=== PATIENT | male | born 1975 | race Caucasian/White ===

== ENCOUNTER 2016-10-23 07:41 | Emergency (ER) | payer BC ==
[2016-10-23 07:59] VITALS: BP 118/77
--- NOTE | 2016-10-23 08:06 | UC ---
Eye Complaint HPI - HPI Summary HPI Summary: complaint of red right eye that started yesterday woke up with crusty green and yellow discharge in his eye lashes extremely itchy his eye feels slightly painful and photophobic denies any foreign body in his eye doesn't wear contacts denies vision changes. pain or "grinding pain" now the redness has spread to the other eye has had some nasal congestion for approx 4 days hasn't used any medications or treatments - History of Current Complaint Chief Complaint: UCEye Stated Complaint: EYE COMPLAINT Time Seen by Provider: 10/23/16 07:44 Hx Obtained From: Patient Location of Injury: Conjunctiva Character: Dull Aggravating Factor(s): Light Alleviating Factor(s): Nothing Associated Signs And Symptoms: Positive: Drainage (Purulent) - Risk Factors Penetrating Injury Risk Factor: Negative Globe Rupture Risk Factors: Negative Acute Glaucoma Risk Factors: Negative Optic Artery Occlusion Risk Factors: Negative - Allergies/Home Medications Allergies/Adverse Reactions: Allergies Allergy/AdvReac Type Severity Reaction Status Date / Time No Known Allergies Allergy Verified 10/23/16 07:52 PMH/Surg Hx/FS Hx/Imm Hx Previously Healthy: Yes Cardiovascular History Of: Reports: Hypertension Denies: Deep Vein Thrombosis Respiratory History Of: Denies: Pulmonary Embolism - Surgical History Surgical History: None - Family History Known Family History: Positive: Other - cancer, both parents alive and well Negative: Cardiac Disease, Hypertension, Diabetes - Social History Occupation: Employed Full-time Lives: With Family Alcohol Use: Occasionally Substance Use Type: None Smoking Status (MU): Former Smoker When Did the Patient Quit Smoking/Using Tobacco: 2005 Review of Systems Constitutional: Negative Skin: Negative Eyes: Drainage, Eye Redness ENT: Negative Respiratory: Negative Cardiovascular: Negative Gastrointestinal: Negative Genitourinary: Negative Motor: Negative Neurovascular: Negative Musculoskeletal: Negative Neurological: Negative Psychological: Negative All Other Systems Reviewed And Are Negative: Yes Physical Exam Triage Information Reviewed: Yes Appearance: No Pain Distress, Well-Nourished Vital Signs: Initial Vital Signs Temp 98.4 F 10/23/16 07:48 Pulse 66 10/23/16 07:48 Resp 16 10/23/16 07:48 BP 118/77 10/23/16 07:48 Pulse Ox 100 10/23/16 07:48 Vital Signs Reviewed: Yes Eyes: Positive: Conjunctiva Inflamed, Discharge ENT: Positive: Pharynx normal, Nasal congestion, Nasal drainage, TMs normal Neck: Positive: No Lymphadenopathy Respiratory: Positive: Lungs clear, Normal breath sounds, No respiratory distress Cardiovascular: Positive: RRR, No Murmur, Pulses Normal Musculoskeletal: Positive: No Edema Neurological: Positive: Alert Psychological Exam: Normal Skin Exam: Normal Eye Complaint Course/Dx - Differential Dx/Diagnosis Differential Diagnosis/HQI/PQRI: Conjunctivitis, Corneal Abrasion Provider Diagnoses: conjunctivitis-bilateral Discharge - Discharge Plan Condition: Stable Disposition: HOME Prescriptions: Tobramycin (Ophth) [Tobrex] 0.3 % OP Q4HR #1 bottle Patient Education Materials: Conjunctivitis (ED) Referrals: Jian Russ DO [Primary Care Provider] - Additional Instructions: CONJUNCTIVITIS What is Conjunctivitis? Conjunctivitis is redness and swelling of the conjunctiva, the thin transparent layer that lines the inner eyelid and covers the white part of the eye. The three main types of conjunctivitis are infectious, allergic, and chemical. The infectious type, commonly called "pink eye," is caused by a contagious virus or by bacteria. Your body's allergies to pollen, cosmetics, animals or fabrics often bring on allergic conjunctivitis. Irritants like air pollution, noxious fumes and chlorine in swimming pools may produce the chemical form. Symptoms Might Include: More tearing Eye pain Redness in the eyes Gritty feeling in the eyes Itching of the eye Blurred vision Sensitivity to light Crusts that form on the eyelid overnight Treatment Recommendations: Use eye drops or ointment as directed. Do not rub or touch your eyes. Wash your hands frequently. Use cool compresses to relieve pain and itching. Prevention: Do not share eye make-up. Replace eye make-up frequently. Do not share towels, washcloths, etc. Do not share eye drops. Disinfect and handle contact lenses properly. Call Your Doctor or Return Here IF: Your symptoms worsen or do not improve in 3 to 4 days. You have problems with, or loss of, your vision. You have a significant increase in pain. You have any new symptoms that worry you.
== END 2016-10-23 08:24 | disposition home or self-care (01) ==
LOC: UCCORT 07:41
DX: H10.33 Unspecified acute conjunctivitis, bilateral (principal); Z87.891 Personal history of nicotine dependence
CPT/HCPCS: 99212; G0463

== ENCOUNTER 2018-06-06 12:10 | Emergency (ER) | payer BC ==
[2018-06-06 13:28] VITALS: BP 136/83
--- NOTE | 2018-06-06 14:45 | UC ---
UC General HPI - HPI Summary HPI Summary: Pt c/o sudden onset of wekness, fatigfue, abdominal pain, nausea, and lose stool X 4 days. Pt has not vomited and has had one loose BM , today. Pt states the feeling of weakness and dizziness is transient and has no other symptoms or palpitations, chest pain, [place], sob. - History of Current Complaint Chief Complaint: UCGeneralIllness Stated Complaint: FATIGUE/WEAKNESS SWEATS/CHILLS STOMACH Time Seen by Provider: 06/06/18 13:45 Hx Obtained From: Patient Onset/Duration: Sudden Onset, Lasting Minutes Timing: Intermittent Episodes Lasting: Onset Severity: Mild Current Severity: Mild Pain Intensity: 0 Associated Signs & Symptoms: Positive: Dizziness, Nausea, Weakness - Allergy/Home Medications Allergies/Adverse Reactions: Allergies Allergy/AdvReac Type Severity Reaction Status Date / Time No Known Allergies Allergy Verified 06/06/18 13:28 PMH/Surg Hx/FS Hx/Imm Hx Previously Healthy: Yes - Surgical History Surgical History: None - Family History Known Family History: Positive: Other - cancer, both parents alive and well Negative: Cardiac Disease, Hypertension, Diabetes - Social History Occupation: Employed Full-time Lives: With Family Alcohol Use: Occasionally Substance Use Type: None Smoking Status (MU): Former Smoker Have You Smoked in the Last Year: No When Did the Patient Quit Smoking/Using Tobacco: 2005 Review of Systems All Other Systems Reviewed And Are Negative: Yes Constitutional: Positive: Fatigue Skin: Positive: Negative Eyes: Positive: Negative ENT: Positive: Negative Respiratory: Positive: Negative Cardiovascular: Positive: Negative Gastrointestinal: Positive: Abdominal Pain, Diarrhea - X1, Nausea Genitourinary: Positive: Negative Motor: Positive: Negative Neurovascular: Positive: Negative Neurological: Positive: Weakness Psychological: Positive: Negative Is Patient Immunocompromised?: No Physical Exam Triage Information Reviewed: Yes Appearance: Well-Appearing Vital Signs: Initial Vital Signs Temp 98.6 F 06/06/18 13:22 Pulse 78 06/06/18 13:22 Resp 18 06/06/18 13:22 BP 136/83 06/06/18 13:22 Pulse Ox 100 06/06/18 13:22 Vital Signs Reviewed: Yes Eye Exam: Normal ENT Exam: Normal Dental Exam: Normal Neck exam: Normal Respiratory Exam: Normal Cardiovascular Exam: Normal Abdominal Exam: Normal Abdomen Description: Positive: Nontender Bowel Sounds: Positive: Present Musculoskeletal Exam: Normal Neurological Exam: Normal Psychological Exam: Normal Skin Exam: Normal Course/Dx - Course Course Of Treatment: I discussed with the pt the need to follow up with his PCP as soon as possible. Additionally, pt has concern for food poisoning. - Differential Dx - Multi-Symptom Provider Diagnoses: weakness. fatigue. viral syndrome Discharge - Sign-Out/Discharge Documenting (check all that apply): Patient Departure All imaging exams completed and their final reports reviewed: No Studies - Discharge Plan Condition: Stable Disposition: HOME Prescriptions: Ondansetron HCl [Zofran] 4 mg PO Q8HR PRN #15 tablet PRN Reason: Nausea Patient Education Materials: Acute Abdominal Pain (ED), Weakness (ED), Fatigue (ED) Referrals: Jian Russ DO [Primary Care Provider] - As Soon As Possible - Billing Disposition and Condition Condition: STABLE Disposition: Home
[2018-06-06 18:54] LABS: ABS Basophils 0.1 10^3/ul (0-0.2); ABS Eosinophils 0.1 10^3/ul (0-0.6); ABS Lymphocytes 1.7 10^3/ul (1.0-4.8); ABS Monocytes 0.6 10^3/ul (0-0.8); ABS Neutrophils 4.3 10^3/ul (1.5-7.7); ABS Nucleated RBC 0 10^3/ul; Hematocrit 44 % (42-52); Hemoglobin 15.1 g/dl (14.0-18.0); Lymphocyte % 25.5 % (25-47); Mean Corpuscular HGB Conc 34 g/dl (31-36); Mean Corpuscular Hemoglobin 30 pg (27-31); Mean Corpuscular Volume 87 fL (80-94); Mean Platelet Volume 7.8 fL (7.4-10.4); Nucleated Red Blood Cells % 0.3; Platelet Count 261 10^3/ul (150-450); Red Blood Count 5.06 10^6/ul (4.00-5.40); Red Cell Distribution Width 14 % (10.5-15); White Blood Count 6.8 10^3/ul (3.5-10.8)
[2018-06-06 19:04] LABS: EGFR Non-African American 73.5 (>60)
== END 2018-06-06 14:23 | disposition home or self-care (01) ==
LOC: UCCORT 12:10
DX: B34.9 Viral infection, unspecified (principal); R53.1 Weakness; R53.83 Other fatigue; R10.9 Unspecified abdominal pain; R11.0 Nausea; R19.5 Other fecal abnormalities; Z87.891 Personal history of nicotine dependence
CPT/HCPCS: 36415; 80053; 85025; 99212; G0463